=== PATIENT | female | born 1965 | race Caucasian/White ===

== ENCOUNTER 2019-07-20 10:31 | Outpatient (CLI) | payer MEDICARE, SELFPAY ==
--- NOTE | 2019-07-19 | XR_ITS ---
WS: [id number] CERVICAL SPINE TECHNIQUE: 3 views of the cervical spine CLINICAL INFORMATION: CHRONIC NECK PAIN COMPARISON: July 07, 2011 FINDINGS: Sternotomy. Straightening with slight reversal the normal cervical lordosis in the neutral position. Disc space narrowing worse at C5-C6 and C6-C7 with mild spondylitic changes. Normal dens. No signific ant instability on flexion-extension. XR/XR cervical spine 4-5V [id number] IMPRESSION: 1. Straightening with slight reversal the normal cervical lordosis. 2. Mild spondylitic changes with mild disc space narrowing C5-C6 and C6-C7. 3. No significant instability on flexion extension.
--- NOTE | 2019-07-20 | XR_ITS ---
WS: [id number] SHOULDER LEFT TECHNIQUE: 3 views of the left shoulder CLINICAL INFORMATION: LT SHOULDER PAIN COMPARISON: None. FINDINGS: Normal acromioclavicular joint. Normal glenohumeral joint. Acromion is normal in appearance. Normal g lenoid. No evidence of acute fracture dislocation. Calcified granulomas left lung XR/XR shoulder LT min 2V* [id number] IMPRESSION: Normal left shoulder.
== END 2019-07-20 10:32 | disposition home or self-care (01) ==
PROVIDERS: Family Provider Family Medicine; Visit Provider Family Medicine
DX: M25.512 Pain in left shoulder (principal); M54.2 Cervicalgia; G89.29 Other chronic pain; M47.892 Other spondylosis, cervical region

== ENCOUNTER 2020-09-04 22:17 | Inpatient (IN) | payer MEDICARE, MEDICAID, SELFPAY ==
--- NOTE | 2020-09-04 22:19 | ECG_ITS ---
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 Measurements Intervals [place] Rate: 96 P: 0 RI: 195 QRS: -36 QRSD: 145 T: 13 QT: 373 QTc: 473 Interpretive Statements SINUS RHYTHM RIGHT BUNDLE BRANCH BLOCK [120+ ms QRS DURATION, UPRIGHT V1, 40+ ms S IN I/aVL/V4/V5/V6] POSSIBLE ANTERIOR MYOCARDIAL INFARCTION , PROBABLY OLD [30 ms Q WAVE IN V3/V4, OR R < 0.2 mV IN V4] INFERIOR MYOCARDIAL INFARCTION , PROBABLY OLD [40+ ms Q WAVE AND/OR ST/T ABNORMALITY IN II/aVF] Compared to ECG 11/11/2018 17:17:03 Right bundle-branch block now present Myocardial infarct finding still present Electronically Signed On 09-05-2020 22:03:56 MID LEVEL BUSINESS ANALYST by Negar Morales M.D. [id number]
--- NOTE | 2020-09-04 22:19 | XR_ITS ---
WS: [id number] Portable AP upright chest, 09/04/2020 Clinical Data: cp Comparison: Portable chest, 11/11/2018. Findings: No nodules, masses or effusions are seen. . The pulmonary vascularity is not increased. No pneumonia or pneumothorax is seen. The heart is not enlarged. Midline sternotomy sutures are present along with mediastinal clips. The aortic arch is minimally tortuous. XR/XR chest 1V portable [id number] Impression: Atherosclerosis.
[2020-09-04 22:22] VITALS: BP 134/87; PULSE 99; RESP 25; TEMP 36.6; O2SAT 96; BMI 39.1
[2020-09-04 22:28] LABS: Basophils # 0.1 10^3/uL (0.0-0.1); Basophils % 0.5 %; Eosinophils # 0.4 10^3/uL (0.0-0.8); Eosinophils % 3.2 %; Hematocrit 46.2 % (37.0-47.0); Hemoglobin 14.8 g/dL (11.5-15.3); Lymphocytes # 3.9 10^3/uL (0.8-4.8); Lymphocytes % 32.9 %; Mean Corpuscular Hemoglobin 27.3 pg (28.0-34.0); Mean Corpuscular Volume 85.1 fL (81-99); Mean Platelet Volume 10.7 fL (7.4-10.4); Monocytes # 0.7 10^3/uL (0.2-0.9); Monocytes % 5.7 %; Neutrophils # 6.79 10^3/uL (1.8-7.7); Neutrophils % 57.3 %; Nucleated Red Blood Cells % 0 %; Platelet Count 287 10^3/cmm (130-400); Red Blood Count 5.43 10^6/uL (4.1-5.3); Red Cell Distribution Width 14.4 % (12.1-15.1); White Blood Count 11.9 10^3/uL (4.0-10.0)
[2020-09-04 22:29] VITALS: BP 130/78; PULSE 97; RESP 18; O2SAT 97
[2020-09-04 23:13] VITALS: BP 93/78; PULSE 88; RESP 7; O2SAT 95
--- NOTE | 2020-09-04 23:15 | ED_ITS ---
HPI - Chest Pain General: Chief Complaint: Chest Pain Stated Complaint: chest pain Time Seen by Provider: 09/04/20 22:19 Source: patient and EMS Mode of arrival: EMS Limitations: no limitations History of Present Illness: HPI narrative: 54-year-old female who has a history of coronary disease and had a CABG 2 years ago. States 2 days ago she was having some chest pain that resolved started again today. States the pain is been a pressure type pain in the center of her chest and does radiate to her left arm. Said mild dyspnea. She does have history of a pulmonary embolism in the past. Denies any diarrhea. She has had some nausea. Pain is currently 3+ MD complaint: chest pain Associated symptoms: Deny abdominal pain, dyspnea, fever(s), nausea or vomiting Review of Systems Const: Denies: fever(s), chills, body aches or change in appetite Eyes: Denies: blurry vision or eye discomfort ENMT: Denies: throat pain or dental pain Card: Reports: chest pain Resp: Denies: dyspnea GI: Denies: abdominal pain, nausea, vomiting or diarrhea : Denies: dysuria Musc: Denies: neck pain or back pain Skin/Breast: Denies: rash Neuro: Denies: headache(s) Psych: Denies: depression Doc/Lymph: Denies: easy bruising All/Imm: Denies: urticaria Physical Exam Const: COMMON NORMALS: no acute distress, patient oriented x3 and healthy appearing HENMT: COMMON NORMALS: normocephalic and atraumatic HEAD & SCALP: normocephalic and atraumatic Eye: COMMON NORMALS: Equal, round and reactive pupils present and EOMs intact bilaterally PUPIL: Yes Equal, round and reactive pupils present Neck/C-Spine: COMMON NORMALS: full ROM and supple Chest: COMMONS NORMALS: normal inspection of the chest and normal palpation of entire chest wall Resp: COMMON NORMALS: normal respiratory effort, No retractions, No use of accessory muscles and clear to auscultation bilaterally AUSCULTATION: clear to auscultation bilaterally Cardio: COMMON NORMALS: regular rate, regular rhythm and No murmurs present (Cardio) RATE: regular rate RHYTHM: regular rhythm GI: COMMON NORMALS: Normal to inspection, nondistended, normoactive bowel sounds present, Soft to palpation, non-tender and no masses PALPATION: Yes Soft to palpation Extremity: COMMON NORMALS: normal to inspection and full ROM Neuro: COMMON NORMALS: patient oriented x3, moves all extremities and no focal motor deficits Psych: COMMON NORMALS: mental status grossly normal, Normal thought process present and cooperative THOUGHT PROCESS: Normal thought process present Skin: COMMON NORMALS: no rashes or lesions noted and no wounds GENERAL SKIN EXAM: no rashes or lesions noted Course Vital Signs: Vital signs: Vital Signs Temperature 97.8 F 09/04/20 22:22 Pulse Rate 94 09/04/20 23:49 Respiratory Rate 20 H 09/04/20 23:49 Blood Pressure 126/68 09/04/20 23:49 Pulse Oximetry 96 09/04/20 23:42 MDM - Chest Pain MDM Narrative: Medical decision making narrative: Dione presents here with chest pain. Initial troponin or D-dimer here negative. She has been pain-free here. She does have extensive history I spoke to the hospitalist will admit for observation. Lab Data: Labs: Lab Results 09/04/20 09/04/20 09/04/20 Range/Units 22:12 22:58 22:58 WBC 11.9 H (4.0-10.0) 10^3/ uL RBC 5.43 H (4.1-5.3) 10^6/u L Hgb 14.8 (11.5-15.3) g/dL Hct 46.2 (37.0-47.0) % MCV 85.1 (81-99) fL MCH 27.3 L (28.0-34.0) pg MCHC 32.0 (30.0-36.0) g/dL RDW 14.4 (12.1-15.1) % Plt Count 287 (130-400) 10^3/c mm MPV 10.7 H (7.4-10.4) fL Neut % (Auto) 57.3 % Lymph % (Auto) 32.9 % [place] % (Auto) 5.7 % Eos % (Auto) 3.2 % Baso % (Auto) 0.5 % Neut # (Auto) 6.79 (1.8-7.7) 10^3/u L Lymph # (Auto) 3.9 (0.8-4.8) 10^3/u L [place] # (Auto) 0.7 (0.2-0.9) 10^3/u L Eos # (Auto) 0.4 (0.0-0.8) 10^3/u L Baso # (Auto) 0.1 (0.0-0.1) 10^3/u L Nucleated RBC % (a uto) 0 % Nucleated RBCs # 0.0 /100WBC D-Dimer (0-0.59) ug/mIFE U Sodium 134 L (136-145) mmol/L Potassium 4.1 (3.5-5.1) mmol/L Chloride 101 (98-107) mmol/L Carbon Dioxide 21 L (22-29) mmol/L Anion Gap 16.1 (5-19) BUN 9 (6-20) mg/dL Creatinine 0.7 (0.5-0.9) mg/dL GFR Calculation 87.2 L (90-130) mL/min Glucose 285 H (65-115) mg/dL Calculated Osmolal ity 287 (285-295) mOsm/k g Calcium 9.5 (8.5-10.5) mg/dL Total Bilirubin 0.2 (0.15-1.2) mg/dL AST 26 (0-32) U/L ALT 39 H (0-33) U/L Alkaline Phosphata se 113 H (35-105) IU/L Troponin T Baselin e 7 (0-10) ng/L Total Protein 7.5 (6.6-8.7) g/dL Albumin 4.0 (3.5-5.2) g/dL Globulin 3.5 (1.3-4.6) g/dL 09/04/20 Range/Units 22:58 WBC (4.0-10.0) 10^3/ uL RBC (4.1-5.3) 10^6/u L Hgb (11.5-15.3) g/dL Hct (37.0-47.0) % MCV (81-99) fL MCH (28.0-34.0) pg MCHC (30.0-36.0) g/dL RDW (12.1-15.1) % Plt Count (130-400) 10^3/c mm MPV (7.4-10.4) fL Neut % (Auto) % Lymph % (Auto) % [place] % (Auto) % Eos % (Auto) % Baso % (Auto) % Neut # (Auto) (1.8-7.7) 10^3/u L Lymph # (Auto) (0.8-4.8) 10^3/u L [place] # (Auto) (0.2-0.9) 10^3/u L Eos # (Auto) (0.0-0.8) 10^3/u L Baso # (Auto) (0.0-0.1) 10^3/u L Nucleated RBC % (a uto) % Nucleated RBCs # /100WBC D-Dimer 0.35 (0-0.59) ug/mIFE U Sodium (136-145) mmol/L Potassium (3.5-5.1) mmol/L Chloride (98-107) mmol/L Carbon Dioxide (22-29) mmol/L Anion Gap (5-19) BUN (6-20) mg/dL Creatinine (0.5-0.9) mg/dL GFR Calculation (90-130) mL/min Glucose (65-115) mg/dL Calculated Osmolal ity (285-295) mOsm/k g Calcium (8.5-10.5) mg/dL Total Bilirubin (0.15-1.2) mg/dL AST (0-32) U/L ALT (0-33) U/L Alkaline Phosphata se (35-105) IU/L Troponin T Baselin e (0-10) ng/L Total Protein (6.6-8.7) g/dL Albumin (3.5-5.2) g/dL Globulin (1.3-4.6) g/dL Imaging Data^: CXR: Attestation: I personally reviewed and interpreted this imaging study as follows: Radiologist's impression: No acute abnormality EKG Data^: EKG 1: Attestation: I personally reviewed and interpreted this EKG as follows: EKG interpretation date: 09/04/20 EKG interpretation time: 22:22 Interpretation: Normal sinus rhythm heart rate 96 right bundle branch block no ST or T wave abnormalities QRS 145 QTc 427 Discharge Plan Discharge Patient Disposition: Admitted As Inpatient Clinical Impression: Chest pain Qualifiers: Chest pain type: unspecified Qualified Code(s): R07.9 - Chest pain, unspecified Condition: Stable Coding Level of Care Code ED Range Management Specialist for Chg Fwd Exam Comprehensive
[2020-09-04 23:20] LABS: D Dimer 0.35 ug/mIFEU (0-0.59)
[2020-09-04 23:23] LABS: Alanine Aminotransferase 39 U/L (0-33); Alkaline Phosphatase 113 IU/L (35-105); Anion Gap 16.1 (5-19); Aspartate Amino Transferase 26 U/L (0-32); Blood Urea Nitrogen 9 mg/dL (6-20); Calcium 9.5 mg/dL (8.5-10.5); Carbon Dioxide 21 mmol/L (22-29); Chloride 101 mmol/L (98-107); Globulin 3.5 g/dL (1.3-4.6); Glomerular Filtration Rate 87.2 mL/min (90-130); Glucose 285 mg/dL (65-115); Osmolality Calculated 287 mOsm/kg (285-295); Potassium 4.1 mmol/L (3.5-5.1); Sodium 134 mmol/L (136-145); Total Bilirubin 0.2 mg/dL (0.15-1.2); Total Protein 7.5 g/dL (6.6-8.7)
[2020-09-04 23:26] LABS: Troponin(5th) Baseline 7 ng/L (0-10)
[2020-09-04] MEDS: ondansetron 2 mg/ML SDV 2 mL 4 MG IVP (23:39)
[2020-09-04 23:40] VITALS: RESP 26
[2020-09-04] MEDS: morphine 4 mg/mL SDV 1 mL IVP (23:40)
[2020-09-04 23:42] VITALS: BP 130/101; PULSE 89; RESP 13; O2SAT 96
--- NOTE | 2020-09-04 23:43 | PC.NURSE ---
Chest Pain 8/ - Medial radiating to left anterior shoulder, pt reports pain stops at her left elbow Pt states chronic back pain is 8 - pt states she had been suffering from back pain for several years and takes chronic pain medications for it
[2020-09-04 23:49] VITALS: BP 126/68; PULSE 94; RESP 20
[2020-09-05] VITALS (44 sets, daily range): BP systolic 80–127; BP diastolic 50–92; PULSE 63–101; RESP 11–26; TEMP 36.4–36.9; O2SAT 93–98
--- NOTE | 2020-09-05 | USCV_ITS ---
Dione Lazcano Age: 54 Gender: F : 1965 Exam Date: 09/05/2020 14:01 Ordering Phys: Sam Burton MD Technologist: Nito Hale Exam Location: [facility] [place] Indication: Chest pain, h/o CABG BP: 99 / 68 HR: 71 Rhythm: Sinus Technical Quality: Fair MEASUREMENTS (Male / Female) Normal Values 2D ECHO LV Diastolic Diameter PLAX 3.0 cm 4.2 - 5.9 / 3.9 - 5.3 cm LV Systolic Diameter PLAX 2.0 cm IVS Diastolic Thickness 0.8 cm 0.6 - 1.0 / 0.6 - 0.9 cm IVS Systolic Thickness 1.2 cm LVPW Diastolic Thickness 1.1 cm 0.6 - 1.0 / 0.6 - 0.9 cm LVPW Systolic Thickness 1.3 cm LVOT Diameter 2.1 cm LV Ejection Fraction 2D Teich 66.3 % LV Ejection Fraction MOD 2C 59.3 % LV Ejection Fraction 2C AL 59.1 % LA Diameter 3.6 cm LA Width 3.5 cm LA Height 5.1 cm RA Width 3.1 cm RA Height 4.3 cm Aorta at Sinotubular Diameter 2.2 cm M-MODE LV Diastolic Diameter MM 4.7 cm 4.2 - 5.9 / 3.9 - 5.3 cm LV Systolic Diameter MM 3.1 cm LV Ejection Fraction MM Teich 63.9 % IVS Diastolic Thickness MM 1.1 cm 0.6 - 1.0 / 0.6 - 0.9 cm IVS Systolic Thickness MM 1.5 cm LVPW Diastolic Thickness MM 1.2 cm 0.6 - 1.0 / 0.6 - 0.9 cm LVPW Systolic Thickness MM 1.6 cm Aortic Annulus Diameter 3.6 cm LA Ao Ratio MM 1.1 MV E Point Septal Separation 0.9 cm DOPPLER AV Peak Velocity 135.0 cm/s LVOT Peak Velocity 105.0 cm/s AV Area Cont Eq vti 2.2 cm squared AV Area Cont Eq pk 2.6 cm squared MV Area PHT 5.0 cm squared Mitral E to A Ratio 1.0 MV E' Velocity 40.0 cm/s Mitral E to MV E' Ratio 9.0 Mitral E to LV E' Lateral Ratio 8.8 Mitral E to LV E' Septal Ratio 9.3 TR Peak Velocity 153.3 cm/s TR Peak Gradient 9.4 mmHg TV Peak E Velocity 90.0 cm/s Right Atrial Pressure 3.0 mmHg Pulmonary Artery Systolic Pressu 12.4 mmHg PV Peak Velocity 98.0 cm/s FINDINGS Left Ventricle Normal left ventricular cavity size. Normal left ventricular systolic function. Left ventricular ejection fraction is estimated at 70 %. No regional wall motion abnormalities. Normal diastolic function. Right Ventricle Normal right ventricular size and systolic function. Right ventricular systolic pressure 12.4 mmHg. Right Atrium Normal right atrial size. Left Atrium Normal left atrial size. Mitral Valve Structurally normal mitral valve. No mitral valve stenosis. Trace mitral valve regurgitation. Aortic Valve Structurally normal trileaflet aortic valve. No aortic valve stenosis. No aortic valve regurgitation. Tricuspid Valve Structurally normal tricuspid valve. Trace tricuspid valve regurgitation. Pulmonic Valve Pulmonic valve not well visualized. No pulmonary valve stenosis. No pulmonary valve regurgitation. Pericardium No pericardial effusion. Aorta Normal sized aortic root. CONCLUSIONS 1. This is a technically difficult study. Ultrasound enhancing agent (Optison) was used. 2. Normal left ventricular cavity size. Normal left ventricular systolic function. Left ventricular ejection fraction is estimated at 70 %. No regional wall motion abnormalities. Normal diastolic function. 3. No significant valvular abnormality. 4. Normal pulmonary artery pressure. 5. No significant change when compared to previous study dated 09/01/2018. Negar Morales MD Edited by: CV Retinal Angiographer (Electronically Signed) Final Date: 06 September 2020 19:17 Amended: 09 September 2020 10:51 C
--- NOTE | 2020-09-05 00:19 | ECG_ITS ---
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 Measurements Intervals [place] Rate: 98 P: 20 NH: 172 QRS: -19 QRSD: 147 T: 3 QT: 362 QTc: 463 Interpretive Statements SINUS RHYTHM INDETERMINATE AXIS RIGHT BUNDLE BRANCH BLOCK [120+ ms QRS DURATION, UPRIGHT V1, 40+ ms S IN I/aVL/V4/V5/V6] ANTERIOR MYOCARDIAL INFARCTION , OF INDETERMINATE AGE [40+ ms Q WAVE AND/OR ST/T ABNORMALITY IN V3/V4] Compared to ECG 09/04/2020 22:22:17 Indeterminate axis now present Myocardial infarct finding still present Electronically Signed On 09-05-2020 22:27:49 TOOL AND DIE REPAIR by Negar Morales M.D. [id number]
[2020-09-05 00:53] LABS: Troponin 5 2HR 6.51 ng/L (0-10)
[2020-09-05 00:54] LABS: Troponin 5 2HR Delta -0.49 ABS# (0-10)
--- NOTE | 2020-09-05 01:08 | P.HP_ITS ---
Providers/Chief Complaint Admitting Physician: Eliseo Pham Primary Care Provider: Ramiro Camacho MD Chief Complaint: chest pain History of Present Illness Dione Lazcano is a 54 year old female with a history of quadruple bypass surgery presented to the emergency department with a complaint of chest pain onset a couple of days ago, intermittent in nature, maximum severity 9/10, partially relieved with nitroglycerin, no known aggravating factors, no associated diaphoresis or palpitation or lightheadedness. Patient states that the chest pain radiated to involve her left shoulder and arm. Her initial troponin in the ED is negative. EKG showed right bundle branch block and nondiagnostic for ischemia. Chest x-ray is unremarkable. Patient is placed in observation for ACS rule out Review of Systems Narrative: Except as documented, all other systems reviewed and negative. Medications/Allergies Home Medications Medication Instructions Recorded Confirmed Last Taken Type metoprolol tartrate 25 mg tablet 12.5 mg PO BID #90 tab 10/13/19 Unknown Rx furosemide 20 mg tablet 20 mg PO DAILY #30 tab 04/22/20 Unknown Rx aspirin 81 mg 09/05/20 Unknown History duloxetine 60 mg PO DAILY 09/05/20 09/05/20 Unknown History escitalopram oxalate 20 mg 09/05/20 Unknown History liraglutide [Victoza 2-Diomedes] 1.8 mg SUBCUT DAILY 09/05/20 09/05/20 Unknown History loratadine mg 09/05/20 Unknown History metformin 1,000 mg PO BID 09/05/20 09/05/20 Unknown History omeprazole 40 mg PO BID 09/05/20 09/05/20 Unknown History pregabalin [Lyrica] 150 mg PO BID 09/05/20 09/05/20 Unknown History rosuvastatin [Crestor] 20 mg PO DAILY 09/05/20 09/05/20 Unknown History topiramate 100 mg PO BID 09/05/20 09/05/20 Unknown History tramadol 100 mg PO BID PRN 09/05/20 09/05/20 Unknown History Allergies Allergy/AdvReac Type Severity Reaction Status Date / Time prochlorperazine Allergy Mild Unknown Unverified 09/05/20 00:45 [From Compazine] amoxicillin [From Augmentin] Allergy ALGY-Difficulty Verified 09/04/20 22:29 Swallowing clavulanic acid Allergy ALGY-Difficulty Verified 09/04/20 22:29 [From Augmentin] Swallowing codeine Allergy ADR-Hyperte Verified 09/04/20 22:29 nsion eucalyptus Allergy ALGY-Anaphy Verified 09/05/20 00:46 laxis metoclopramide [From Reglan] Allergy ADR-Anxiety Verified 09/04/20 22:29 naproxen Allergy ADR-Vomitin Verified 09/04/20 22:29 g Sulfa (Sulfonamide Allergy ALGY-Rash Verified 09/04/20 22:29 Antibiotics) PFSH Acute PFSH: Medical History (Updated 09/05/20 @ 01:47 by Eliseo Pham MD) Coronary artery disease Diabetes mellitus type 2 in obese History of pulmonary embolism Hyperlipidemia Hypertension Surgical History (Updated 09/05/20 @ 01:48 by Eliseo Pham MD) Hx of CABG Family History (Updated 09/05/20 @ 01:49 by Eliseo Pham MD) Other CAD (coronary artery disease) Social History (Updated 09/05/20 @ 01:49 by Eliseo Pham MD) Smoking and tobacco status: never smoked Alcohol intake: never Substance/Drug Use: never Vitals/I&O/Wt Last Vital Signs Temp 97.5 F L 09/05/20 00:59 Pulse 100 09/05/20 01:05 Resp 15 09/05/20 01:05 BP 124/80 09/05/20 01:05 Pulse Ox 97 09/05/20 01:05 Weight last 48 hrs Weight 103.419 kg Physical Exam Const: COMMON NORMALS: no acute distress, patient oriented x3 and alert NUTRITIONAL APPEARANCE: obese HENMT: COMMON NORMALS: moist oral mucous membranes Eye: COMMON NORMALS: Equal, round and reactive pupils present, EOMs intact bilaterally, conjunctivae normal and no scleral icterus Neck/C-Spine: COMMON NORMALS: supple and no JVD Lymph: LYMPHATIC: no lymphadenopathy noted Chest: COMMONS NORMALS: normal palpation of entire chest wall CHEST: Yes Symmetrical chest wall rise Resp: COMMON NORMALS: normal respiratory effort, No use of accessory muscles and clear to auscultation bilaterally Cardio: COMMON NORMALS: regular rate, regular rhythm, S1 normal heart sound present, S2 normal heart sound present and No murmurs present (Cardio) GI: COMMON NORMALS: Normal to inspection, nondistended, normoactive bowel sounds present, Soft to palpation, non-tender and no bruits : COMMON NORMALS: Yes no CVA tenderness Back/Pelvis: COMMON NORMALS: thoraco-lumbar ROM normal Extremity: COMMON NORMALS: no clubbing, cyanosis or edema and no pedal edema Neuro: COMMON NORMALS: patient oriented x3, CN's II-XII intact bilaterally and no focal motor deficits Psych: COMMON NORMALS: mental status grossly normal and Normal thought process present Skin: COMMON NORMALS: no rashes or lesions noted and no jaundice Data : 09/04/20 22:12 09/04/20 22:58 A&P Assessment and plan (1) Chest pain: Status: Acute Qualifiers: Chest pain type: unspecified Qualified Code(s): R07.9 - Chest pain, unspecified (2) Hx of CABG: Status: Acute (3) Diabetes mellitus type 2 in obese: Status: Acute (4) Hypertension: Status: Acute (5) History of pulmonary embolism: Status: Acute Additional A&P Information Place patient on observation. Continue to trend troponin. Start aspirin, metoprolol, statin. Check lipid profile Cardiology consult. Hold Metformin Insulin sliding scale for glucose management. Patient states that she completed anticoagulation for pulmonary embolism and she is no longer on any anticoagulation. Attestations Medical Necessity Statement*: Patient with significant cardiac history presented with chest pain. She need to be hospitalized for ACS rule out. She is expected to spend less than two midnights. Coding Level of Care Code Acute Crossword Puzzle Maker for [facility] Fwd Exam Comprehensive Diagnoses Chest pain R07.9 Chest pain type: unspecified Hx of CABG Z95.1 Diabetes mellitus type 2 in obese E11.69; E66.9 Hypertension I10 History of pulmonary embolism Z86.711
[2020-09-05] MEDS: morphine 4 mg/mL SDV 1 mL 2 MG IVP ×3 (01:43→19:51)
[2020-09-05] MEDS: famotidine 20 mg/2 mL INJ IVP (01:43)
[2020-09-05] MEDS: enoxaparin 40 mg/0.4 mL Syringe SUBCUT (02:44)
[2020-09-05 05:32] LABS: Troponin 5 6HR 6.73 ng/L (0-10)
[2020-09-05 05:37] LABS: Troponin 5 6HR Delta -0.27 ng/L (0-12)
[2020-09-05 06:51] LABS: Glucose Point of Care 254 mg/dL (70-110)
--- NOTE | 2020-09-05 07:30 | PC.NURSE ---
Upon intial assessment, patient reports that she had intermittent chest pain overnight while resting, nurse was not notified. Patient was educated on the importance of informing nurse when chest pain occurs. Patient verbalized understanding of teaching and compliance. Dr. Burton updated. Patient denies chest pain at this time.
[2020-09-05] MEDS: TRAMadol 50 mg Tablet 100 MG PO ×2 (08:38→19:51)
[2020-09-05] MEDS: duloxetine 60 mg Capsule PO (08:38)
[2020-09-05] MEDS: metoprolol tartrate 25 mg Tablet 12.5 MG PO ×2 (08:39→17:26)
[2020-09-05] MEDS: pantoprazole DR 40 mg Tablet PO ×2 (08:39→17:26)
[2020-09-05] MEDS: topiramate 100 mg Tablet PO ×2 (08:39→17:26)
[2020-09-05] MEDS: pregabalin 150 mg Capsule PO ×2 (08:39→17:27)
--- NOTE | 2020-09-05 09:04 | PC.CHAP ---
Pastoral Care Encounter/Spiritual Assessment Type of Contact [] Declined basting cleaner visit [] Patient/Family/Request visit [] Outpatient visit [] Follow-up visit [] Physician referral [] Code/Alert [x] Routine visit [] Staff referral [] Actively dying [x] Patient sleeping [] Family support [] [] Out of room [] Palliative care [] [] Receiving care in room [] Pre-surgical visit [] Trauma [] Long length of stay [] ICU visit [] Other: Relational/Emotional Strength [] Patient feels connected with others/family/visitors/staff [] Distress [] Loneliness/isolation [] Abandonment Spirituality of Patient [] Person of Beckie [] Attends Church of their Beckie [] Believes in Prayer [] Reads Bible or Baptist materials [] There are Spiritual issues to be addressed Sewer Repairer Interventions [x] Prayer [] Active listening [] Non-anxious presence [] Spiritual/emotional support [] Crisis/trauma care [] Spiritual counseling [] Bereavement support [] Provided bereavement packet [] Provided Bible/devotional materials [] Provided toy/stuffed animal, coloring book to patient or family member [] Provided Communion [] Anointing/[place]mo [] Salvation [x] Completed spiritual assessment [] Other: Impact on Illness or Injury [] Angry [] Fearful [] Anxious [] Often cries [] Exhaustion [] Unable to work [] Unable to attend cheondoism [] Unable to walk/stand [] Unable to read [] Unable to drive [] Unable to eat/drink [] Unable to sleep [] Unable to be with family [] Patient intubated [] Other: Summary Time spent with patient
--- NOTE | 2020-09-05 09:16 | USCV_ITS ---
Dione Lazcano Age: 54 Gender: F : 1965 Exam Date: 09/05/2020 14:01 Ordering Phys: Sam Burton MD Technologist: Nito Hale Exam Location: [facility] [place] Indication: Chest pain, h/o CABG BP: 99 / 68 HR: 71 Rhythm: Sinus Technical Quality: Fair MEASUREMENTS (Male / Female) Normal Values 2D ECHO LV Diastolic Diameter PLAX 3.0 cm 4.2 - 5.9 / 3.9 - 5.3 cm LV Systolic Diameter PLAX 2.0 cm IVS Diastolic Thickness 0.8 cm 0.6 - 1.0 / 0.6 - 0.9 cm IVS Systolic Thickness 1.2 cm LVPW Diastolic Thickness 1.1 cm 0.6 - 1.0 / 0.6 - 0.9 cm LVPW Systolic Thickness 1.3 cm LVOT Diameter 2.1 cm LV Ejection Fraction 2D Teich 66.3 % LV Ejection Fraction MOD 2C 59.3 % LV Ejection Fraction 2C AL 59.1 % LA Diameter 3.6 cm LA Width 3.5 cm LA Height 5.1 cm RA Width 3.1 cm RA Height 4.3 cm Aorta at Sinotubular Diameter 2.2 cm M-MODE LV Diastolic Diameter MM 4.7 cm 4.2 - 5.9 / 3.9 - 5.3 cm LV Systolic Diameter MM 3.1 cm LV Ejection Fraction MM Teich 63.9 % IVS Diastolic Thickness MM 1.1 cm 0.6 - 1.0 / 0.6 - 0.9 cm IVS Systolic Thickness MM 1.5 cm LVPW Diastolic Thickness MM 1.2 cm 0.6 - 1.0 / 0.6 - 0.9 cm LVPW Systolic Thickness MM 1.6 cm Aortic Annulus Diameter 3.6 cm LA Ao Ratio MM 1.1 MV E Point Septal Separation 0.9 cm DOPPLER AV Peak Velocity 135.0 cm/s LVOT Peak Velocity 105.0 cm/s AV Area Cont Eq vti 2.2 cm squared AV Area Cont Eq pk 2.6 cm squared MV Area PHT 5.0 cm squared Mitral E to A Ratio 1.0 MV E' Velocity 40.0 cm/s Mitral E to MV E' Ratio 9.0 Mitral E to LV E' Lateral Ratio 8.8 Mitral E to LV E' Septal Ratio 9.3 TR Peak Velocity 153.3 cm/s TR Peak Gradient 9.4 mmHg TV Peak E Velocity 90.0 cm/s Right Atrial Pressure 3.0 mmHg Pulmonary Artery Systolic Pressu 12.4 mmHg PV Peak Velocity 98.0 cm/s FINDINGS Left Ventricle Normal left ventricular cavity size. Normal left ventricular systolic function. Left ventricular ejection fraction is estimated at 70 %. No regional wall motion abnormalities. Normal diastolic function. Right Ventricle Normal right ventricular size and systolic function. Right ventricular systolic pressure 12.4 mmHg. Right Atrium Normal right atrial size. Left Atrium Normal left atrial size. Mitral Valve Structurally normal mitral valve. No mitral valve stenosis. Trace mitral valve regurgitation. Aortic Valve Structurally normal trileaflet aortic valve. No aortic valve stenosis. No aortic valve regurgitation. Tricuspid Valve Structurally normal tricuspid valve. Trace tricuspid valve regurgitation. Pulmonic Valve Pulmonic valve not well visualized. No pulmonary valve stenosis. No pulmonary valve regurgitation. Pericardium No pericardial effusion. Aorta Normal sized aortic root. CONCLUSIONS 1. This is a technically difficult study. Ultrasound enhancing agent (Optison) was used. 2. Normal left ventricular cavity size. Normal left ventricular systolic function. Left ventricular ejection fraction is estimated at 70 %. No regional wall motion abnormalities. Normal diastolic function. 3. No significant valvular abnormality. 4. Normal pulmonary artery pressure. 5. No significant change when compared to previous study dated 09/01/2018. Negar Morales MD (Electronically Signed) Final Date: 06 September 2020 19:17 S
[2020-09-05] MEDS: nicotine 14 mg Patch 1 PATCH TRANSDERMA (09:40)
--- NOTE | 2020-09-05 11:03 | ECG_ITS ---
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 Measurements Intervals [place] Rate: 63 P: 180 IL: 207 QRS: 180 QRSD: 158 T: 184 QT: 428 QTc: 440 Interpretive Statements ECTOPIC ATRIAL RHYTHM MARKED RIGHT AXIS DEVIATION [QRS AXIS > 100] POSSIBLE LIMB LEAD REVERSAL RIGHT BUNDLE BRANCH BLOCK POSSIBLE ANTERIOR MYOCARDIAL INFARCTION, OF INDETERMINATE AGE MODERATE T-WAVE ABNORMALITY, CONSIDER INFERIOR ISCHEMIA Compared to ECG 09/05/2020 00:12:30 Ectopic atrial rhythm now present Right-axis deviation now present T-wave abnormality now present Possible ischemia now present Myocardial infarct finding still present Electronically Signed On 09-05-2020 21:56:11 AGILE BUSINESS ANALYST by Negar Morales M.D. [id number]
[2020-09-05] MEDS: nitroglycerin 0.4 mg sublingual Tablet SUBLINGUAL (11:14)
[2020-09-05 11:28] LABS: Glucose Point of Care 217 mg/dL (70-110)
--- NOTE | 2020-09-05 11:30 | PC.NURSE ---
Chest Pain Patient reports chest pain to left medial chest that radiates up neck and to left shoulder, 8/10. Describes as tight, pressure that makes it hard to breathe. VSS. Dr. Colbert notified at 1104. Telephone order received to obtain stat 12 lead, administer SL nitro per protocol, remove nitro patch that is in place, stat trop gen 5 one time. RBTO. Nitro patch removed. 1 SL nitro administered, see MAR. After 5 minutes patient reports chest pain is now 2/10. VSS. Nurse to continue to monitor.
--- NOTE | 2020-09-05 11:45 | PC.NURSE ---
AMA Patient tearful stating, I don't feel like you all give a shit about me. Nothing is being done. If I'm just going to sit here and feel like shit, I'd rather feel like shit at home. Nurse educated patient on plan of care. Patient stated understanding, but continued to state she wanted to leave. Nurse educated patient of risks of leaving AMA. Patient verbalized understanding and wanted to talk to her fiance before making a final decision. Dr. Burton notified. No new orders at this time. Nurse to continue to monitor.
[2020-09-05 12:04] LABS: Troponin T (5th) Once 7 ng/L (0-10)
[2020-09-05] MEDS: enoxaparin 100 mg/mL Syringe SUBCUT (12:11)
--- NOTE | 2020-09-05 12:56 | P.CONIM_ITS ---
Providers/Reason For Consult Consulting Physican/Specialty*: Dr. Morales, cardiology Reason for Consult*: Recurrent episodes of chest pain Attending Physician: Sam Burton Primary Care Provider: Ramiro Camacho MD History of Present Illness History of Present Illness Dione Lazcano is a 54 year old female with history of diabetes mellitus type II, dyslipidemia, obesity, chronic back pain and smoking abuse. She also has history of CAD s/p CABG x4 for unstable angina and anxiety/depression. She had an abnormal myocardial perfusion imaging in July 2018. She underwent left heart catheterization with Dr. Cruz and was found to have a high-grade lesions in the proximal and mid LAD. The first diagonal had high-grade lesion proximally. Circumflex artery revealed a high-grade lesions in the terminal bifurcation. The right coronary artery was found to have moderate disease in the mid segment. The PDA branch of the right coronary artery was found to have multiple high-grade lesions. She underwent CABG x4 and her postop course was complicated by prolonged intubation, ICU stay and small subsegmental PE. She returned back for sternal wound dehiscence and underwent wound exploration debridement and wound VAC placement in September 2018. She is known to me from her previous hospitalization and was last seen in office in October 2018. This time she was admitted last night with complaints of chest pain that started on Wednesday. Pain described as retrosternal in location 9/10 in intensity sharp, burning and pressure-like with diaphoresis and some nausea. She got her B19 vaccine on Wednesday. On Wednesday she did not have any symptoms but yesterday her symptoms started again and she presented to ER for further evaluation. She did not take any nitroglycerin as she has no way of checking her blood pressure at home as per patient. EKG showed sinus rhythm right bundle branch block, old inferior myocardial infarction. Probably old anterior myocardial infarction. Previous EKG in November 2018 showed sinus rhythm with low QRS voltage in precordial leads and probably old anterior myocardial infarction. Baseline troponin T of 7 at 1 5:40 0.5 and at 6 hours 6.7. At the time of evaluation, patient complains that she has not received pain medications and nothing is staying being done for her and is threatening to leave AMA. From my previous experience with her, this is her baseline behavior. Review of Systems General: Reports: 10 or more systems reviewed and unremarkable except in HPI and below Const: Denies: fever(s), chills, body aches or change in appetite Eyes: Denies: blurry vision or eye discomfort ENMT: Denies: throat pain or dental pain Card: Reports: chest pain Resp: Denies: dyspnea GI: Denies: abdominal pain, nausea, vomiting or diarrhea : Denies: dysuria Musc: Reports: neck pain and back pain; Denies: extremity swelling or joint swelling Skin/Breast: Denies: rash Neuro: Denies: headache(s) Psych: Denies: depression Doc/Lymph: Denies: easy bruising, petechiae or purpura All/Imm: Denies: urticaria Meds/Allergies Home Medications and Allergies Home Medications Medication Instructions Recorded Confirmed Last Taken Type metoprolol tartrate 25 mg tablet 12.5 mg PO BID #90 tab 10/13/19 09/05/20 Unknown Rx furosemide 20 mg tablet 20 mg PO DAILY #30 tab 04/22/20 09/05/20 Unknown Rx aspirin 81 mg PO DAILY@09/05/20 09/05/20 Unknown History duloxetine 60 mg PO DAILY@09/05/20 09/05/20 Unknown History escitalopram oxalate 20 mg PO DAILY@09/05/20 09/05/20 Unknown History liraglutide [Victoza 2-Diomedes] 1.8 mg SUBCUT DAILY@09/05/20 09/05/20 Unknown History loratadine 10 mg PO DAILY PRN 09/05/20 09/05/20 Unknown History metformin 1,000 mg PO BID@09/05/20 09/05/20 Unknown History nitroglycerin [Nitrostat] 0.4 mg SUBLINGUAL Q5M PRN 09/05/20 09/05/20 Unknown History omeprazole 40 mg PO BID@09/05/20 09/05/20 Unknown History pregabalin [Lyrica] 150 mg PO BID@09/05/20 09/05/20 Unknown History rosuvastatin [Crestor] 20 mg PO DAILY@09/05/20 09/05/20 Unknown History topiramate 100 mg PO BID@09/05/20 09/05/20 Unknown History tramadol 100 mg PO BID 09/05/20 09/05/20 Unknown History Allergies Allergy/AdvReac Type Severity Reaction Status Date / Time prochlorperazine Allergy Mild Unknown Unverified 09/05/20 00:45 [From Compazine] amoxicillin [From Augmentin] Allergy ALGY-Difficulty Verified 09/04/20 22:29 Swallowing clavulanic acid Allergy ALGY-Difficulty Verified 09/04/20 22:29 [From Augmentin] Swallowing codeine Allergy ADR-Hyperte Verified 09/04/20 22:29 nsion eucalyptus Allergy ALGY-Anaphy Verified 09/05/20 00:46 laxis metoclopramide [From Reglan] Allergy ADR-Anxiety Verified 09/04/20 22:29 naproxen Allergy ADR-Vomitin Verified 09/04/20 22:29 g Sulfa (Sulfonamide Allergy ALGY-Rash Verified 09/04/20 22:29 Antibiotics) Current Medications Current Medications Generic Name Dose Route Start Last Admin Trade Name Freq PRN Reason Stop Dose Admin Duloxetine HCl 60 mg 09/05/20 09:00 09/05/20 08:38 Duloxetine 60 Mg Capsule PO 60 mg DAILY HIRO Administration Enoxaparin Sodium 100 mg 09/05/20 12:00 09/05/20 12:11 Enoxaparin 100 Mg/Ml Syringe SUBCUT 100 mg Q12H HIRO Administration Insulin Aspart 0 unit 09/05/20 08:00 09/05/20 12:12 Insulin Aspart 100 Unit/1 Ml SUBCUT 6 unit WM&BEDTIME HIRO Administration Protocol Metoprolol Tartrate 12.5 mg 09/05/20 09:00 09/05/20 08:39 Metoprolol Tartrate 25 Mg Tablet PO 12.5 mg BID HIRO Administration Morphine Sulfate 2 mg 09/05/20 01:33 09/05/20 01:43 Morphine 4 Mg/Ml Sdv 1 Ml IVP 2 mg Q4H PRN Administration SEVERE PAIN Nicotine 1 patch 09/05/20 09:09 09/05/20 09:40 Nicotine 14 Mg Patch TRANSDERMA 1 patch DAILY HIRO Administration Nitroglycerin 1 patch 09/05/20 01:45 09/05/20 01:44 Nitroglycerin 0.1 Mg Patch TRANSDERMA 1 patch Q24H HIRO Administration Nitroglycerin 0.4 mg 09/05/20 11:04 09/05/20 11:14 Nitroglycerin 0.4 Mg Sublingual Tablet SUBLINGUAL 1 tab Q5M PRN Administration CHEST PAIN Pantoprazole Sodium 40 mg 09/05/20 09:00 09/05/20 08:[address] 40 Mg Tablet PO 40 mg BID HIRO Administration Pregabalin 150 mg 09/05/20 09:00 09/05/20 08:39 Pregabalin 150 Mg Capsule PO 150 mg BID HIRO Administration Topiramate 100 mg 09/05/20 09:00 09/05/20 08:39 Topiramate 100 Mg Tablet PO 100 mg BID HIRO Administration Tramadol HCl 100 mg 09/05/20 02:01 09/05/20 08:38 Tramadol 50 Mg Tablet PO 100 mg BID PRN Administration pain PFSH Acute PFSH: Medical History (Updated 09/05/20 @ 19:27 by Negar Morales MD) Coronary artery disease Diabetes mellitus type 2 in obese History of pulmonary embolism Hyperlipidemia Hypertension Surgical History Hx of CABG Family History Other CAD (coronary artery disease) Social History (Updated 09/05/20 @ 19:21 by Negar Morales MD) Smoking and tobacco status: current every day smoker Alcohol intake: never Substance/Drug Use: never Vitals/I&O/Wt Last Vital Signs Temp 98.0 F 09/05/20 07:47 Pulse 82 09/05/20 12:00 Resp 16 09/05/20 12:00 BP 107/75 09/05/20 12:00 Pulse Ox 94 09/05/20 07:47 09/04/20 09/05/20 09/05/20 22:59 06:59 14:59 Intake Total 1000 / 1000 Balance 1000 / 1000 Weight last 48 hrs Weight 228 lb Physical Exam 2 Narrative: EXAM NARRATIVE: GENERAL: Obese woman sitting in bed in no acute distress HEENT: Extraocular movement intact. Pupils equal round reactive to light. No pallor or icterus. NECK: central trachea, no JVD, no abdominojugular reflex. No carotid bruit. CARDIOVASCULAR SYSTEM: S1-S2 regular. No S3 or S4 present. No murmur rubs or gallops. RESPIRATORY SYSTEM: Chest clear to auscultation. No wheezes rhonchi or rubs heard. No use of accessory muscles. ABDOMEN: Soft, nontender and nondistended. Normal bowel sounds present. EXTREMITIES: No cyanosis or clubbing. No edema. No signs of chronic venous insufficiency. ANALYSIS CONSULTANT: Patient is alert oriented ?3. No focal neurological deficits. Cranial nerves intact. SKIN: Normal turgor and temperature. No breakdown, rash or nail changes noted. PSYCH: Normal insight and judgment. Data Other Data: Other data: Coronary angiogram 19 August 2018 Diagnostic Cath Status: Elective Diagnostic Findings LM-is a medium caliber elongated vessel with no significant stenotic lesions. The left anterior descending artery is a medium caliber vessel which appears to wrap around the LV apex minimally. The proximal LAD was a high-grade lesion of around 90%. The first to diagonal branch was found to have 80% tubular lesion. The mid LAD has a 75% lesion, right after the first diagonal branch. The distal LAD was found to have diffuse disease around the LV apex ranging anywhere from 40-50%. The circumflex artery is a small to medium caliber vessel. The proximal and the mid segments artery was found to have mild diffuse disease. The intermedius artery appears to be high obtuse marginal branch. The distal circumflex artery appears to bifurcate. The proximal segment of each of these branches were found to have high-grade stenosis, involving the ostium-around 90% in one of the branches and 75% in the other branch. The right coronary artery is a medium to large caliber dominant vessel which was found to have around 60% in the midsegment. The PDA branch was found to have severe diffuse disease. The proximal segment of the artery was found to have around 80% lesion and the mid segment, around 70% lesion. The intermedius artery was found to be a high obtuse marginal branch. Minimal intimal irregularities were noted in this vessel. Coronary angiography shows right dominance. Recommendations Patient is transferred to medical for stable condition. She'll be evaluated by the cardiothoracic surgeon and the time of the surgical procedure will be decided afterwards. Ejection Fraction: 60.0 % Left Ventriculography Findings: The LVEDP was 30 mmHg. Echocardiogram revealed no evidence of any significant mitral valve prolapse or mitral regurgitation. No significant wall motion abnormalities. Myocardial perfusion imaging July 2018 revealed a moderate area of ischemia in the distribution of the left anterior descending artery. A&P Assessment and plan (1) Chest pain: Chest pain atypical in that it is nonexertional in nature. -Patient's CABG x4 was on August 20 2017. -Echocardiogram was reviewed and even though technically difficult no regional wall motion abnormality was appreciated. I will plan for repeat echo with echo contrast before finalizing the report. -Plan for Lexiscan myocardial perfusion imaging tomorrow and further management based on that. -Continue aspirin, statin, metoprolol, nitroglycerin sublingual. May continue Lovenox for now. -Because of soft blood pressure unable to start on Imdur, amlodipine. -I will add Ranexa to the regimen. Status: Acute Qualifiers: Chest pain type: unspecified Qualified Code(s): R07.9 - Chest pain, unspecified (2) Coronary artery disease: status post CABG x4 Status: Inactive Qualifiers: Coronary Disease-Associated Artery/Lesion type: [place] artery [place] vs. transplanted heart: [place] heart Associated angina: with unspecified angina Qualified Code(s): I25.119 - Atherosclerotic heart disease of [place] coronary artery with unspecified angina pectoris (3) Hypertension: Blood pressure is low normal. On Lasix 20 and metoprolol tartrate 12.5 twice daily at home Status: Acute Qualifiers: Hypertension type: essential hypertension Qualified Code(s): I10 - Essential (primary) hypertension (4) Diabetes mellitus type 2 in obese: On Metformin at home Status: Acute Additional A&P Information Hyperlipidemia Obesity Smoking Anxiety/depression Thank you for allowing me to participate in patient's care. Please feel free to call with questions or concerns Consult Attestations Medical Necessity Statement: Needs hospital stay for management of chest pain Time Spent in Patient Care: Greater than 35 minutes (>than 50% of time spent in counselling and/or direct pt care on unit) . 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 transplanted heart: [place] heart Associated angina: with unspecified angina Hypertension I10 Hypertension type: essential hypertension Diabetes mellitus type 2 in obese E11.69; E66.9
[2020-09-05] MEDS: ranolazine (12HR) 500 mg Tablet PO ×2 (14:20→20:24)
[2020-09-05] MEDS: acetaminophen 325 mg Tablet 650 MG PO ×2 (14:27→19:51)
[2020-09-05 17:07] LABS: Glucose Point of Care 251 mg/dL (70-110)
[2020-09-05] MEDS: famotidine 20 mg Tablet PO (17:26)
[2020-09-05 20:10] LABS: Glucose Point of Care 209 mg/dL (70-110)
[2020-09-05] MEDS: atorvastatin 40 mg Tablet 80 MG PO (20:24)
--- NOTE | 2020-09-05 22:15 | P.PN_ITS ---
Subjective Subjective: Interval history: During my visit having no chest pain. Does report having on and off episodes overnight. Subsequently in the afternoon again having episodes of chest pain. Partially resolved by nitroglycerin. Triggered by showering, activity. Doubts it is as she takes large dose of omeprazole twice daily. Asks about going home. Discussed with her concern about returning home given recurrent episodes of chest pain, possibility of advancement of coronary artery disease, risk of myocardial infarction, arrhythmia, congestive heart failure, other disability and if leaving prematurely before additional assessment and optimization of treatment can be performed. Vitals/I&O/Wt Last Vital Signs Temp 98.0 F 09/05/20 15:23 Pulse 95 09/05/20 20:43 Resp 15 09/05/20 19:52 BP 101/56 09/05/20 19:52 Pulse Ox 95 09/05/20 20:43 09/05/20 09/05/20 09/05/20 06:59 14:59 22:59 Intake Total 1000 / 1000 120 / 120 240 / 360 Balance 1000 / 1000 120 / 120 240 / 360 Weight last 48 hrs Weight 103.419 kg Physical Exam Const: COMMON NORMALS: no acute distress, patient oriented x3 and alert NUTRITIONAL APPEARANCE: obese ORIENTATION/CONSCIOUSNESS: Yes awake HENMT: COMMON NORMALS: oropharynx normal Neck/C-Spine: COMMON NORMALS: no JVD Resp: COMMON NORMALS: normal respiratory effort and clear to auscultation bilaterally AUSCULTATION: clear to auscultation bilaterally Cardio: COMMON NORMALS: no JVD, regular rhythm, S1 normal heart sound present, S2 normal heart sound present and No murmurs present (Cardio) RHYTHM: regular rhythm HEART SOUNDS: S1 normal heart sound present and S2 normal heart sound present GI: COMMON NORMALS: Normal to inspection, nondistended, normoactive bowel sounds present, Soft to palpation and non-tender PALPATION: Yes Soft to palpation Extremity: COMMON NORMALS: no joint enlargement and no pedal edema Neuro: COMMON NORMALS: patient oriented x3 and moves all extremities SENSORIUM/ORIENTATION: Yes alert Skin: COMMON NORMALS: no rashes or lesions noted GENERAL SKIN EXAM: no rashes or lesions noted Data : 09/04/20 22:12 09/04/20 22:58 A&P Assessment and plan (1) Chest pain: Lovenox initiated with concern for possible unstable angina. Alternatively discussed with her other possible causes. She thinks this is less likely heartburn, and is continued on PPI. She does have quite a bit of chronic pain following sternotomy with CABG. Appreciate cardiology assessment. Planned for stress testing for tomorrow for additional risk stratification. Continue aspirin, statin, metoprolol. Ranexa added. Status: Acute Qualifiers: Chest pain type: unspecified Qualified Code(s): R07.9 - Chest pain, unspecified (2) Hx of CABG: Status: Acute (3) Diabetes mellitus type 2 in obese: SSI Status: Acute (4) Hypertension: Monitor. Cardiac diet. Metoprolol. Status: Acute Qualifiers: Hypertension type: essential hypertension Qualified Code(s): I10 - Essential (primary) hypertension (5) History of pulmonary embolism: Status: Acute Attestations Medical Necessity Statement*: Requiring admission of over 2 midnights for assessment of management of recurrent chest pain, with known coronary disease, status post CABG, multiple CAD risk factors. 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
[2020-09-06] VITALS (12 sets, daily range): BP systolic 94–134; BP diastolic 54–76; PULSE 62–94; RESP 15–26; TEMP 36.8–37.3; O2SAT 94–96
--- NOTE | 2020-09-06 01:30 | PC.NURSE ---
Unable to do rounding on patient due to being in room 103.
[2020-09-06] MEDS: enoxaparin 100 mg/mL Syringe SUBCUT ×2 (01:33→12:10)
[2020-09-06] MEDS: aspirin 325 mg Tablet PO ×2 (01:33→10:28)
[2020-09-06] MEDS: morphine 4 mg/mL SDV 1 mL 2 MG IVP ×3 (01:49→14:34)
[2020-09-06 04:56] LABS: Basophils # 0.1 10^3/uL (0.0-0.1); Basophils % 0.7 %; Eosinophils # 0.4 10^3/uL (0.0-0.8); Eosinophils % 4.6 %; Hematocrit 43.3 % (37.0-47.0); Hemoglobin 13.4 g/dL (11.5-15.3); Lymphocytes # 3.7 10^3/uL (0.8-4.8); Lymphocytes % 43.4 %; Mean Corpuscular HGB Conc 30.9 g/dL (30.0-36.0); Mean Corpuscular Hemoglobin 27.1 pg (28.0-34.0); Mean Corpuscular Volume 87.7 fL (81-99); Mean Platelet Volume 10.7 fL (7.4-10.4); Monocytes # 0.6 10^3/uL (0.2-0.9); Monocytes % 6.5 %; Neutrophils % 44.6 %; Nucleated Red Blood Cells % 0 %; Platelet Count 235 10^3/cmm (130-400); Red Blood Count 4.94 10^6/uL (4.1-5.3); Red Cell Distribution Width 14.5 % (12.1-15.1); White Blood Count 8.5 10^3/uL (4.0-10.0)
[2020-09-06 05:25] LABS: Anion Gap 12.1 (5-19); Blood Urea Nitrogen 11 mg/dL (6-20); Calcium 9.1 mg/dL (8.5-10.5); Carbon Dioxide 27 mmol/L (22-29); Chloride 104 mmol/L (98-107); Glomerular Filtration Rate 74.7 mL/min (90-130); Glucose 212 mg/dL (65-115); Magnesium 2.1 mg/dL (1.7-2.3); Osmolality Calculated 294 mOsm/kg (285-295); Potassium 4.1 mmol/L (3.5-5.1); Sodium 139 mmol/L (136-145); Thyroid Stimulating Hormone 0.53 uIU/mL (0.27-4.20)
[2020-09-06 05:42] LABS: Chol HDL Ratio 3.89 mg/dL (0.0-4.40); Cholesterol 136 mg/dL (0-200); HDL Cholesterol 35 mg/dL (60-100); LDL Cholesterol Calculated 34 mg/dL (50-129); LDL HDL Ratio 0.97 RATIO (0.00-3.22); Triglycerides 336 mg/dL (0-150)
--- NOTE | 2020-09-06 06:09 | ECG_ITS ---
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 Interpretive Statements NAME OF STUDY: LEXISCAN SESTAMIBI STRESS TEST INDICATION: Chest pain, history of CABG PROCEDURE: At the baseline, the blood pressure was 119/68 mmHg, oxygen saturation 95% with a heart rate of 75 beats per minute. The electrocardiogram showed normal sinus rhythm, indeterminate axis. Right bundle branch block. Possible anterior myocardial infarction of indeterminate age. The Lexiscan was infused over a period of 20 seconds. A total of 0.4 milligrams of Lexiscan was infused. The stress phase was continued for a total of 5 minutes. Heart rate at the end of the stress phase was 103 bpm, oxygen saturation 98% with a blood pressure of 126/69 mmHg. The EKG at the peak infusion revealed sinus tachycardia with no significant ST-T wave changes. Sestamibi was injected 20 seconds after the Lexiscan infusion. Blood pressure at the end of the recovery phase was 134/76 mmHg, oxygen saturation 96% with a heart rate of 93 beats per minute. CONCLUSION: 1. No significant EKG changes with the LexiScan infusion. 2. No LexiScan induced chest pain or cardiac arrhythmia. 3. Normal blood pressure and heart rate response. 4. Sestamibi/sestamibi perfusion scan pending; see separate report. Electronically Signed On 09-06-2020 17:28:09 VAULT CLERK by Negar Morales M.D. [id number]
[2020-09-06 06:49] LABS: Glucose Point of Care 189 mg/dL (70-110)
[2020-09-06] MEDS: regadenoson 0.4 Mg/5 ml Syringe IVP (08:55)
[2020-09-06] MEDS: ondansetron 2 mg/ML SDV 2 mL 4 MG IVP (08:59)
[2020-09-06] MEDS: pregabalin 150 mg Capsule PO ×2 (10:28→17:23)
[2020-09-06] MEDS: topiramate 100 mg Tablet PO ×2 (10:28→17:23)
[2020-09-06] MEDS: pantoprazole DR 40 mg Tablet PO ×2 (10:29→17:23)
[2020-09-06] MEDS: nicotine 14 mg Patch 1 PATCH TRANSDERMA (10:29)
[2020-09-06] MEDS: famotidine 20 mg Tablet PO ×2 (10:29→17:23)
[2020-09-06] MEDS: duloxetine 60 mg Capsule PO (10:29)
[2020-09-06] MEDS: ranolazine (12HR) 500 mg Tablet PO (10:34)
--- NOTE | 2020-09-06 10:34 | PC.NURSE ---
Dr. Morales notified of patient's VS. Telephone order to hold metoprolol and nitro patch for 1-2 hours and reassess BP. Give Ranexa now. RBTO. Nurse to continue to monitor.
[2020-09-06] MEDS: perflutren protein-a microsphr 0.22 mg/mL SDV 3 mL IV (10:50)
[2020-09-06 11:27] LABS: Glucose Point of Care 253 mg/dL (70-110)
[2020-09-06] MEDS: TRAMadol 50 mg Tablet 100 MG PO (12:11)
--- NOTE | 2020-09-06 12:15 | PC.NURSE ---
Dr. Morales updated on patient's VS. Telephone message left. Nurse waiting further orders.
--- NOTE | 2020-09-06 13:00 | PC.NURSE ---
Telephone order received from Dr. Morales to administer metoprolol now, hold nitro patch. RBTO. Nurse to continue to monitor.
[2020-09-06] MEDS: metoprolol tartrate 25 mg Tablet 12.5 MG PO ×2 (13:02→17:23)
[2020-09-06] MEDS: acetaminophen 325 mg Tablet 650 MG PO (13:03)
--- NOTE | 2020-09-06 13:28 | PC.CHAP ---
Pastoral Care Encounter/Spiritual Assessment Type of Contact [] Declined layout man visit [] Patient/Family/Request visit [] Outpatient visit [] Follow-up visit [] Physician referral [] Code/Alert [xx] Routine visit [] Staff referral [] Actively dying [] Patient sleeping [] Family support [] [] Out of room [] Palliative care [] [] Receiving care in room [] Pre-surgical visit [] Trauma [] Long length of stay [] ICU visit [] Other: Relational/Emotional Strength [xx] Patient feels connected with others/family/visitors/staff [] Distress [] Loneliness/isolation [] Abandonment Spirituality of Patient [xx] Person of Beckie [xx] Attends Zoroastrian of their Beckie [xx] Believes in Prayer [xx] Reads Bible or Scientologist materials [] There are Spiritual issues to be addressed Podiatrist Assistant Interventions [xx] Prayer [xx Active listening [xx] Non-anxious presence [] Spiritual/emotional support [] Crisis/trauma care [] Spiritual counseling [] Bereavement support [] Provided bereavement packet [] Provided Bible/devotional materials [] Provided toy/stuffed animal, coloring book to patient or family member [] Provided Communion [] Anointing/[place] [] Salvation [xx] Completed spiritual assessment [] Other: Impact on Illness or Injury [] Angry [] Fearful [] Anxious [] Often cries [] Exhaustion [] Unable to work [] Unable to attend yarsani [] Unable to walk/stand [] Unable to read [] Unable to drive [] Unable to eat/drink [] Unable to sleep [] Unable to be with family [] Patient intubated [] Other: Summary Patient in good spirits with good sense of humor. She hopes to be discharged today. Time spent with patient 4 minutes
--- NOTE | 2020-09-06 14:34 | PC.NURSE ---
patient requesting pain medication for back and neck pain 9/ morphine given
--- NOTE | 2020-09-06 16:42 | P.DS_ITS ---
Discharge Providers Date of Admission: 09/05/20 19:45 Date of Discharge: September 06, 2020 Attending Provider at Admission: Eliseo Pham Attending Provider at Discharge: Sam Burton Primary Care Provider: Ramiro Camacho MD Diagnoses at Discharge Discharge Diagnosis (1) Chest pain: Status: Acute Qualifiers: Chest pain type: unspecified Qualified Code(s): R07.9 - Chest pain, unspecified (2) Hx of CABG: Status: Acute (3) Diabetes mellitus type 2 in obese: Status: Acute (4) Hypertension: Status: Acute Qualifiers: Hypertension type: essential hypertension Qualified Code(s): I10 - Essential (primary) hypertension (5) History of pulmonary embolism: Status: Acute Reason for Visit Reason for Visit: chest pain Hospital Course Hospital Course Pleasant 54-year-old lady with history of CAD, CABG 2yrs ago, DM2, HTN, HLD, was admitted for assessment management due to episodes of chest pain. She was monitored on telemetry. Treated with nitroglycerin as needed. Pain was partially responsive to nitroglycerin. She also indicated she has had quite a bit of postnasal discharge recently which has been making her cough. Chest x- ray showed atherosclerosis, no pneumonia. She remained afebrile, without leukocytosis. She was assessed by cardiology, started on Ranexa. Was assessed by a stress test which was found unremarkable. Her chest pain improved. She was doing well on reassessment by cardiology and was deemed safe for discharge with request for outpatient follow-up. Her chest pain may in part also be related to recently increasing frequency and cough related to postnasal drip with seasonal allergies. She takes Claritin at home. Discussed with her risks and benefits of [id number] intranasal steroid as well. Please follow-up with her to ensure improvement. Physical Exam Const: COMMON NORMALS: no acute distress, patient oriented x3 and alert NUTRITIONAL APPEARANCE: obese ORIENTATION/CONSCIOUSNESS: Yes awake HENMT: COMMON NORMALS: oropharynx normal Neck/C-Spine: COMMON NORMALS: no JVD Chest: OTHER: Midline healed sternotomy with tenderness to touch around the sternotomy. No erythema, ulceration or drainage. Resp: COMMON NORMALS: normal respiratory effort and clear to auscultation bilaterally AUSCULTATION: clear to auscultation bilaterally Cardio: COMMON NORMALS: no JVD, regular rhythm, S1 normal heart sound present, S2 normal heart sound present and No murmurs present (Cardio) RHYTHM: regular rhythm HEART SOUNDS: S1 normal heart sound present and S2 normal heart sound present GI: COMMON NORMALS: Normal to inspection, nondistended, normoactive bowel sounds present, Soft to palpation and non-tender PALPATION: Yes Soft to palpation Extremity: COMMON NORMALS: no joint enlargement and no pedal edema Neuro: COMMON NORMALS: patient oriented x3 and moves all extremities SENSORIUM/ORIENTATION: Yes alert Skin: COMMON NORMALS: no rashes or lesions noted GENERAL SKIN EXAM: no rashes or lesions noted Discharge Data Data Completed and Pending: Completed Studies During Hospitalization Category Date Time Status Sestamibi Stress Test Request Routi ne Exams 09/06/20 06:09 Draft XR chest 1V michael ble [id number] Stat Exams 09/04/20 22:19 Completed NM raheem perf SPECT r/s* [id number] Routin e Nuc Med 09/06/20 19:10 Completed Pending at discharge Category Date Time Status CV echo complete* [id number] Routine Ultrasound 09/05/20 09:16 Taken US/CV paperwork R outine Ultrasound 09/06/20 Taken Labs from last 24 hours 09/06/20 09/06/20 09/06/20 11:19 06:44 04:35 WBC RBC Hgb Hct MCV MCH MCHC RDW Plt Count MPV Neut % (Auto) Lymph % (Auto) Morgan % (Auto) Eos % (Auto) Baso % (Auto) Neut # (Auto) Lymph # (Auto) Morgan # (Auto) Eos # (Auto) Baso # (Auto) Nucleated RBC % (a uto) Nucleated RBCs # Sodium Potassium Chloride Carbon Dioxide Anion Gap BUN Creatinine GFR Calculation Glucose POC Glucose 253 H 189 H Calculated Osmolal ity Calcium Magnesium Triglycerides 336 H Cholesterol 136 LDL Cholesterol, C alc 34 L HDL Cholesterol 35 L LDL/HDL Ratio 0.97 Cholesterol/HDL Ra galen 3.89 TSH 09/06/20 09/06/20 09/05/20 04:35 04:35 20:07 WBC 8.5 RBC 4.94 Hgb 13.4 Hct 43.3 MCV 87.7 MCH 27.1 L MCHC 30.9 RDW 14.5 Plt Count 235 MPV 10.7 H Neut % (Auto) 44.6 Lymph % (Auto) 43.4 Morgan % (Auto) 6.5 Eos % (Auto) 4.6 Baso % (Auto) 0.7 Neut # (Auto) 3.80 Lymph # (Auto) 3.7 Morgan # (Auto) 0.6 Eos # (Auto) 0.4 Baso # (Auto) 0.1 Nucleated RBC % (a uto) 0 Nucleated RBCs # 0.0 Sodium 139 Potassium 4.1 Chloride 104 Carbon Dioxide 27 Anion Gap 12.1 BUN 11 Creatinine 0.8 GFR Calculation 74.7 L Glucose 212 H POC Glucose 209 H Calculated Osmolal ity 294 Calcium 9.1 Magnesium 2.1 Triglycerides Cholesterol LDL Cholesterol, C alc HDL Cholesterol LDL/HDL Ratio Cholesterol/HDL Ra galen TSH 0.53 09/05/20 16:27 WBC RBC Hgb Hct MCV MCH MCHC RDW Plt Count MPV Neut % (Auto) Lymph % (Auto) Morgan % (Auto) Eos % (Auto) Baso % (Auto) Neut # (Auto) Lymph # (Auto) Morgan # (Auto) Eos # (Auto) Baso # (Auto) Nucleated RBC % (a uto) Nucleated RBCs # Sodium Potassium Chloride Carbon Dioxide Anion Gap BUN Creatinine GFR Calculation Glucose POC Glucose 251 H Calculated Osmolal ity Calcium Magnesium Triglycerides Cholesterol LDL Cholesterol, C alc HDL Cholesterol LDL/HDL Ratio Cholesterol/HDL Ra galen TSH Vitals: Last Vital Signs Temp 98.3 F 09/06/20 15:05 Pulse 73 09/06/20 15:05 Resp 20 H 09/06/20 15:05 BP 107/66 09/06/20 15:05 Pulse Ox 94 09/06/20 15:05 Discharge Plan Discharge Patient Disposition: Home Condition: Stable Prescriptions: New ranolazine 500 mg Tablet Extended Release 12 Hr 500 mg PO 0900,2100 Qty: 60 RF: 0 Continued metoprolol tartrate 25 mg tablet 12.5 mg PO BID Qty: 90 RF: 3 furosemide 20 mg tablet 20 mg PO DAILY Qty: 30 RF: 0 rosuvastatin [Crestor] 20 mg Tablet 20 mg PO DAILY@ RF: 0 aspirin 81 mg Tablet,Chewable 81 mg PO DAILY@ RF: 0 metformin 1,000 mg Tablet 1,000 mg PO BID@ RF: 0 escitalopram oxalate 20 mg Tablet 20 mg PO DAILY@ RF: 0 Victoza 2-Diomedes 0.6 mg/0.1 mL (18 mg/3 mL) Pen Injector 1.8 mg SUBCUT DAILY@ RF: 0 duloxetine 60 mg Capsule, Delayed Rel Sprinkle 60 mg PO DAILY@ RF: 0 omeprazole 40 mg Capsule,Delayed Release(Dr/Ec) 40 mg PO BID@ RF: 0 topiramate 100 mg Tablet 100 mg PO BID@ RF: 0 pregabalin [Lyrica] 150 mg Capsule 150 mg PO BID@ RF: 0 tramadol 100 mg Tablet 100 mg PO BID RF: 0 loratadine 10 mg Tablet 10 mg PO DAILY PRN (Reason: Allergic Reaction) RF: 0 Nitrostat 0.4 mg Tablet, Sublingual 0.4 mg SUBLINGUAL Q5M PRN (Reason: Chest Pain) RF: 0 Discharge Orders: Discharge Order (Routine); Ordered 09/06/20 Ordered By: Sam Burton Referrals: Yina Guillermo FNP [Nurse Practitioner] - 1 week ([facility] will be calling to schedule a followup with YAZAN Goncalves to be seen in approx. 1 week. If you don't hear from them by Wednesday, please give them a call. Thank you) Ramiro Camacho MD [Primary Care Provider] - 09/10/20 9:15 am (You have a hospital followup with Dr. Camacho at [facility] on September 10 at 9:15am) Negar Morales MD [Physician] - 1 month ([facility] will be calling to schedule a cardiology followup with Dr. Morales to be seen in approx. 1 month. If you don't hear from them by Wednesday afternoon, please give them a call. Thank you) Discharge Diet: Cardiac and Diabetic Discharge Activity: Increase activity as tolerated and Limit activity as instructed Patient Instructions: Ranolazine (By mouth), Cardiac Stress Test (DC), Chest Pain (DC), Chest Pain Stoplight Activity Restrictions/Additional Instructions: If you experience any persistent chest pain, or frequent recurrences, please return to ER to seek medical attention for additional evaluation. Please continue medications as instructed by cardiology. Follow-up with cardiology in clinic. Continue to follow-up as cultures for coronary disease including diabetes, hypertension with your primary care provider. Discharge Attestations Time Spent in Discharge Care*: greater than 30 min Quality Metrics Clinical Quality Measures During this hospital stay, did patient experience: None Coding Level of Care Code Acute Senior Brand Manager for Santo Fwdhaval Diagnoses Chest pain R07.9 Chest pain type: unspecified Hx of CABG Z95.1 Diabetes mellitus type 2 in obese E11.69; E66.9 Hypertension I10 Hypertension type: essential hypertension History of pulmonary embolism Z86.711
[2020-09-06 16:46] LABS: Glucose Point of Care 238 mg/dL (70-110)
--- NOTE | 2020-09-06 16:50 | PC.NURSE ---
Discharge instructions given per the physician's orders. Patient verbalized understanding of discharge teaching and medication changes and did not have any further questions. IV has been removed. Patient dressed self. No further needs identified at this time. Patient to be drove home by juana in private vehicle.
--- NOTE | 2020-09-06 17:23 | P.PN_ITS ---
Subjective Subjective: Interval history: She underwent stress test this morning. No significant chest pains Medications: Reviewed: Yes Vitals/I&O/Wt Last Vital Signs Temp 98.3 F 09/06/20 15:05 Pulse 73 09/06/20 15:05 Resp 20 H 09/06/20 15:05 BP 107/66 09/06/20 15:05 Pulse Ox 94 09/06/20 15:05 09/06/20 09/06/20 09/06/20 06:59 14:59 22:59 Intake Total 300 / 660 360 / 360 Balance 300 / 660 360 / 360 Weight last 48 hrs Weight 228 lb Physical Exam Narrative: EXAM NARRATIVE: GENERAL: Obese woman sitting in bed in no acute distress HEENT: Extraocular movement intact. Pupils equal round reactive to light. No pallor or icterus. NECK: central trachea, no JVD, no abdominojugular reflex. No carotid bruit. CARDIOVASCULAR SYSTEM: S1-S2 regular. No S3 or S4 present. No murmur rubs or gallops. RESPIRATORY SYSTEM: Chest clear to auscultation. No wheezes rhonchi or rubs heard. No use of accessory muscles. ABDOMEN: Soft, nontender and nondistended. Normal bowel sounds present. EXTREMITIES: No cyanosis or clubbing. No edema. No signs of chronic venous insufficiency. 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 No focal neurological deficits. Cranial nerves intact. SKIN: Normal turgor and temperature. No breakdown, rash or nail changes noted. PSYCH: Normal insight and judgment. Data : 09/06/20 04:35 09/06/20 04:35 A&P Assessment and plan (1) Chest pain: Chest pain atypical in that it is nonexertional in nature. -Patient's CABG x4 was on August 20 2017. -Echocardiogram with normal LV function and no RWMA. -No ischemia on Lexiscan myocardial perfusion imaging. -Continue aspirin, statin, metoprolol, nitroglycerin sublingual. -Because of soft blood pressure unable to start on Imdur, amlodipine. -I will add Ranexa 500 mg BID to the regimen. -f/u in H[facility] with me in 3-4 weeks Status: Acute Qualifiers: Chest pain type: unspecified Qualified Code(s): R07.9 - Chest pain, unspecified (2) Coronary artery disease: status post CABG x4 Status: Inactive Qualifiers: Associated angina: with unspecified angina Coronary Disease-Associated Artery/Lesion type: [place] artery [place] vs. transplanted heart: [place] heart Qualified Code(s): I25.119 - Atherosclerotic heart disease of [place] coronary artery with unspecified angina pectoris (3) Hypertension: Blood pressure is low normal. On Lasix 20 and metoprolol tartrate 12.5 twice daily at home Status: Acute Qualifiers: Hypertension type: essential hypertension Qualified Code(s): I10 - Essential (primary) hypertension (4) Diabetes mellitus type 2 in obese: On Metformin at home Status: Acute Additional A&P Information Hyperlipidemia Obesity Smoking Anxiety/depression Thank you for allowing me to participate in patient's care. Please feel free to call with questions or concerns Attestations Medical Necessity Statement*: stable to be discharged home. Time Spent in Patient Care: 16 - 35 minutes (>than 50% of time spent in counselling and/or direct pt care on unit) . Coding Level of Care Code Acute Sourcing Analyst for Santo Layton Diagnoses Chest pain R07.9 Chest pain type: unspecified Coronary artery disease I25.119 Associated angina: with unspecified angina Coronary Disease-Associated Artery/Lesion type: [place] artery [place] vs. transplanted heart: [place] heart Hypertension I10 Hypertension type: essential hypertension Diabetes mellitus type 2 in obese E11.69; E66.9
--- NOTE | 2020-09-06 19:10 | NMCV_ITS ---
NM raheem perf SPECT r/s* [id number] Dione Lazcano Age: 54 Gender: F : 1965 Exam Date: 09/06/2020 08:09 Ordering Phys: Negar Morales MD ([email or web address]) Technologist: AAKASH Moe Exam Location: [facility] Indications: Chest pain STRESS TEST Please see separate stress test report in [facility] for full findings IMAGE PROTOCOL Rest/Stress 1 Lexiscan Day Radiopharmaceutical Dose (mCi) Administration Site Administered by Rest: Tc-99m 10.8 IV AAKASH Virk Sestamibi Stress:Tc-99m 32.4 IV AAKASH Moe Sestamibi Rest: 06-Sep-2020 60 Discovery 630 Stress: 06-Sep-2020 45 Discovery 630 0.4mg Lexiscan. Images obtained in supine and prone position. SPECT RESULTS Technical Quality: Good Raw Data Analysis: Breast attenuation, Soft tissue attenuation Image Corrections: No attenuation or motion correction applied Summed Stress Score: 6 Summed Rest Score: 0 Summed Difference Score: 6 PERFUSION FINDINGS Small size perfusion abnormality of mild severity of mid inferolateral, apical lateral, apical anterior and apical garcia on supine stress images with improved tracer uptake on prone stress images. This is likely suggestive of attenuation artifact. FUNCTIONAL RESULTS (calculated via Gated SPECT) Stress Image LV EF (%): 72 Stress EDV (mL):69 TID: 0.97 Stress ESV (mL):19 FUNCTIONAL FINDINGS: The left ventricle is normal in size. Transient Ischemia Dilatation of 0.97. There is normal left ventricular systolic function. The left ventricular ejection fraction is normal with a value of 72%. There is normal left ventricular wall thickening and no regional wall motion abnormality. Normal end-diastolic and end-systolic volumes. IMPRESSIONS 1. Myocardial perfusion imaging is normal. 2. Overall left ventricular systolic function is normal without regional wall motion abnormalities. 3. The left ventricular ejection fraction is normal with a value of 72%. 4. No significant coronary ischemia based on the study Negar Morales MD (Electronically Signed) Final Date: 06 September 2020 12:06 S
== END 2020-09-06 17:42 | disposition home or self-care (01) | DRG 303 ==
LOC: ER 09-05 00:01 → CSU 09-05 00:05
PROVIDERS: Admitting Provider Internal Medicine; Emergency Provider Emergency Medicine; PCP Family Medicine; Visit Provider Internal Medicine
DX: I25.119 Atherosclerotic heart disease of native coronary artery with unspecified angina pectoris (principal); E11.9 Type 2 diabetes mellitus without complications; E66.9 Obesity, unspecified; Z68.39 Body mass index [BMI] 39.0-39.9, adult; I10 Essential (primary) hypertension; Z95.1 Presence of aortocoronary bypass graft; Z86.711 Personal history of pulmonary embolism; E78.5 Hyperlipidemia, unspecified; Z79.82 Long term (current) use of aspirin; Z79.84 Long term (current) use of oral hypoglycemic drugs
CPT/HCPCS: 36415; 36416; 71045; 78452; 80048; 80053; 80061; 82962; 83735; 84443; 84484; 85025; 85378; 93005; 93017; 93306; 96372; 96374; 96375; 99285; A9500; C8929; G0378; J1650; J1815; J2270; J2405; J2785; J3490; Q9956

== ENCOUNTER → 2021-03-25 14:19 | Outpatient (BNVA) | payer MEDICARE, SELFPAY | PROVIDERS: Referring Provider Family Medicine; Visit Provider Podiatrist Foot & Ankle Surgery | DX: E11.21 Type 2 diabetes mellitus with diabetic nephropathy (principal); G57.61 Lesion of plantar nerve, right lower limb; Z79.4 Long term (current) use of insulin; M20.41 Other hammer toe(s) (acquired), right foot; M20.42 Other hammer toe(s) (acquired), left foot; M21.41 Flat foot [pes planus] (acquired), right foot; M21.42 Flat foot [pes planus] (acquired), left foot | CPT/HCPCS: 73630 ==

== ENCOUNTER 2021-04-24 13:35 | Outpatient (CLI) | payer MEDICARE, MEDICAID, SELFPAY ==
--- NOTE | 2021-04-24 13:46 | CT_ITS ---
WS: [id number] LDCT LUNG CANCER SCREENING TECHNIQUE: Noncontrast CT of the chest with coronal and sagittal reformatted images. CLINICAL INFORMATION: HX OF TOBACCO USE COMPARISON: CTA chest January 25, [address] chest November 11, 2018 DLP: 56.17 mGy.cm DIvol: 1.[address] scans at [facility] use at least one of these dose optimization techniques: automat ed exposure control; mA and/or kV adjustment per patient size (includes targeted exams where dose is matched to clinical indication); or iterative reconstruction. FINDINGS: Tiny noncalcified 3 mm nodule right lower lobe is stable. No other suspicious pulmonary parenchymal o pacities. No acute pulmonary infiltrates. No focal pneumonia or pleural fluid. No mediastinal or christen r lymphadenopathy. A few calcified granulomas. Sternotomy. CABG. Cholecystectomy clips. Adrenal gland s are normal. CT/CT lung screening [id number] IMPRESSION: LUNG-RADS: 2-Benign Appearance or Behavior FOLLOW UP: 12 Month: Continue annual screening with LDCT
== END 2021-04-24 13:36 | disposition home or self-care (01) ==
LOC: RAD 13:39
PROVIDERS: PCP Family Medicine; Visit Provider Family Medicine
DX: Z12.2 Encounter for screening for malignant neoplasm of respiratory organs (principal); Z87.891 Personal history of nicotine dependence
CPT/HCPCS: 71271

== ENCOUNTER 2021-04-24 13:40 | Outpatient (CLI) | payer MEDICARE, MEDICAID, SELFPAY ==
--- NOTE | 2021-04-24 13:45 | XR_ITS ---
WS: [id number] Chest 2 views, 04/24/2021 Clinical Data: BURSITIS OF LEFT SHOULDER/APPROVAL FOR MRI Comparison: Portable chest, 09/04/2020. Findings: No nodules, masses or effusions are seen. The heart is normal. The pulmonary vascularity is not increased. No pneumonia or pneumothorax is seen. Midline sternotomy sutures and mediastinal clip s are present. The aortic arch and descending thoracic aorta show tortuosity. There are clips in the right upper quadrant from a cholecystectomy. XR/XR chest 2V* [id number] Impression: Atherosclerosis.
== END 2021-04-24 13:41 | disposition home or self-care (01) ==
LOC: RAD 13:41
PROVIDERS: PCP Family Medicine; Visit Provider Specialist
DX: M75.52 Bursitis of left shoulder (principal); I70.90 Unspecified atherosclerosis
CPT/HCPCS: 71046

== ENCOUNTER 2021-05-12 15:39 | Outpatient (CLI) | payer MEDICARE, SELFPAY ==
--- NOTE | 2021-05-12 15:51 | MR_ITS ---
WS: [id number] MRI LEFT SHOULDER NONCONTRAST TECHNIQUE: Sagittal T2, coronal T1, T2 and proton density imaging. Axial gradient PDE imaging. CLINICAL INFORMATION: shoulder pain COMPARISON: None. FINDINGS: Moderate degenerative arthritis AC joint with mild edema and mild downsloping acromion. Mild narrowin g of the subacromial space. Small amount of fluid in the AC joint. Mild chronic thinning of the supra spinatus with tendinopathy. Tiny undersurface surface tear at the supraspinatus insertion. Normal inf raspinatus. Normal teres minor. Normal subscapularis. Normal biceps tendon in the bicipital groove. Normal bone marrow signal in the humerus and glenoid. G lenoid labrum appears grossly normal. Normal biceps labral anchor. Normal intra-articular biceps tend on. MR/MR shoulder LT wo con* [id number] IMPRESSION: 1. Moderate degenerative arthritis AC joint with mild edema and fluid. Mild do wnsloping acromion. 2. Chronic thinning with tendinopathy involving the distal supraspinatus with tendinopathy. Tiny undersurface surface tear at the supraspinatus insertion. 3. Rotator cuff is otherwise normal. 4. Normal biceps tendon in the bicipital groove. Normal biceps labral anchor. 5. No other significant findings.
== END 2021-05-12 15:40 | disposition home or self-care (01) ==
PROVIDERS: PCP Family Medicine; Visit Provider Specialist
DX: M19.012 Primary osteoarthritis, left shoulder (principal)
CPT/HCPCS: 73221

== ENCOUNTER 2021-06-06 11:41 | Outpatient (CLI) | payer MEDICARE, SELFPAY ==
--- NOTE | 2021-06-06 11:45 | US_ITS ---
WS: [id number] INDICATION: Walls's neuroma TECHNIQUE: Ultrasound plantar soft tissues FINDINGS: Ultrasound plantar soft tissues. No evidence of intertarsal lesion. No cystic or solid lesi ons. No evidence of neuroma. US/US soft tissue/extremity [id number] IMPRESSION: No cystic or solid intertarsal lesions.
== END 2021-06-06 11:42 | disposition home or self-care (01) ==
LOC: US 11:42
PROVIDERS: PCP Family Medicine; Visit Provider Podiatrist Foot & Ankle Surgery
DX: G57.61 Lesion of plantar nerve, right lower limb (principal)
CPT/HCPCS: 76882

== ENCOUNTER 2021-06-06 13:26 | Outpatient (CLI) | payer MEDICARE, SELFPAY ==
--- NOTE | 2021-06-06 13:32 | MR_ITS ---
WS: [id number] MRI LUMBAR SPINE NONCONTRAST TECHNIQUE: Sagittal T1, T2 and STIR imaging. Axial T1 and T2 imaging. CLINICAL INFORMATION: VERTEBROGENIC LOW BACK PAIN COMPARISON: None. FINDINGS: Mild lumbar curve. No acute compression. Slight anterolisthesis L4 on L5. L1-L2: Normal. L2-L3: Normal. L3-L4: Mild annular bulging with slight effacement of ventral thecal sac. Left eccentric disc bulging with mild left foraminal narrowing and slight contact of the exiting left L3 nerve root. Right shraddha en is patent. Mild facet arthropathy. L4-L5: Slight anterolisthesis L4 on L5. Shallow central disc protrusion with mild central canal steno sis. Impingement traversing L5 nerve roots bilaterally. Moderate facet arthropathy. Mild right forami nal narrowing. L5-S1: No significant disc bulging. Mild facet arthropathy. Spinal canal and foramen are patent. Visualized pelvic bony structures: Normal. Paravertebral soft tissues: Normal. MR/MR lumbar spine wo con* [id number] IMPRESSION: 1. Mild lumbar curve. No acute compression. Slight anterolisthesis L4 on L5. 2. Small left foraminal protrusion L3-4 with mild left foraminal narrowing and slight contact of the exiting left L3 nerve root. 3. Slight anterolisthesis L4 on L5 with a shallow central protrusion and sligh t impingement traversing L5 nerve roots bilaterally with mild central canal carin nosis. 4. Mild right L4-5 foraminal narrowing. 5. Moderate facet arthropathy more prominent at L4-5.
--- NOTE | 2021-06-06 13:33 | XR_ITS ---
WS: [id number] Lumbar spine with flexion, extension, and neutral lateral, 06/06/2021 Clinical Data: VERTEBROGENIC LOW BACK PAIN Comparison: None. Findings: No compression fractures are seen. There is degenerative disc narrowing at L3-L4 and L4-L5 with a 0.5 cm subluxation at L4-L5. Minimal anterior osteoarthritic spurring is present at all levels. No limitation of motion is seen. The subluxation at L4-L5 increases to 1.0 cm on flexion but does not change on extension. XR/XR lumbar spine f/e only [id number] Impression: 1. Degenerative disc disease at L4-L5 and L3-L4. 2. 0.5 cm subluxation of 0.5 cm at L4-L5 which increases to 1.0 cm on flexion. 3. Minimal osteoarthritis of the lumbar vertebral bodies.
== END 2021-06-06 13:27 | disposition home or self-care (01) ==
PROVIDERS: PCP Family Medicine; Visit Provider Nurse Practitioner
DX: M54.51 Vertebrogenic low back pain (principal); S33.140A Subluxation of L4/L5 lumbar vertebra, initial encounter; X58.XXXA Exposure to other specified factors, initial encounter; M47.816 Spondylosis without myelopathy or radiculopathy, lumbar region
CPT/HCPCS: 72120; 72148

== ENCOUNTER 2022-01-09 12:55 | Outpatient (CLI) | payer MEDICARE, SELFPAY | END 2022-01-09 12:56 | disposition home or self-care (01) | LOC: LAB 12:59 | PROVIDERS: PCP Family Medicine; Visit Provider Family Medicine | DX: A04.72 Enterocolitis due to Clostridium difficile, not specified as recurrent (principal) | CPT/HCPCS: 82274; 83630; 83993; 87177; 87209; 87493; 89125 ==

== ENCOUNTER 2022-02-10 13:09 | Outpatient (CLI) | payer MEDICARE, SELFPAY ==
--- NOTE | 2022-02-10 13:21 | US_ITS ---
WS: [id number] THYROID ULTRASOUND HISTORY: THYROID CYST COMPARISON: 03/29/2017 Right lobe: 1.4 cm x 1.3 cm x 4.3 cm (w x ap x l). Volume: 4.1 cm3. Mild atrophy of the thyroid. Nodule in the mid gland measures 1.3 x 0.7 x 1.0 cm. No increased vascul arity. Hypoechoic nodule is nonspecific and similar to the prior study without significant increase i n size. There is an additional nodule measuring 0.9 x 0.3 x 0.8 cm in the superior pole. Left lobe: 1.4 cm x 1.3 cm x 3.8 cm (w x ap x l). Volume: 3.5 cm3. Small caliber thyroid. No suspicious mass. No echogenic foci. Isthmus: 0.3 cm. US/US thyroid [id number] IMPRESSION: 1. Indeterminate but small RIGHT thyroid nodules. The largest has not changed since 2017. Due to stability no intervention necessary at this time. Consider y early thyroid evaluation. 2. No echogenic foci.
--- NOTE | 2022-02-10 13:21 | XRR_ITS ---
PROCEDURE INFORMATION: Exam: XR Chest Exam date and time: 02/10/2022 1:33 PM Age: 56 years old Clinical indication: Other: Unintentional weight loss/abd pain/htn; Prior surgery; Surgery type: Hystero, heart bypass TECHNIQUE: Imaging protocol: Radiologic exam of the chest. Views: Frontal and lateral upright, 2 views. COMPARISON: CR XR chest 2V* [id number] 04/24/2021 1:50 PM FINDINGS: Tubes, catheters and devices: The patient is status post median sternotomy with intact sternal cerclage wires. Lungs: Left mid lung zone calcified pulmonary parenchymal granuloma. The pulmonary vasculature is normal. The lungs are otherwise peripherally clear bilaterally. Pleural spaces: No pleural effusion. No pneumothorax. Heart/Mediastinum: Left hilar granulomatous harsha calcifications are present. Coronary ostial markers are present. The heart is normal in size and contour. Bones/joints: Degenerative disk disease is present at mid-thoracic spine disk levels. Organs: The gallbladder is likely surgically absent, with metallic clips overlying the gallbladder fossa. XR/XR chest 2V* [id number] IMPRESSION: Prior cholecystectomy.
== END 2022-02-10 13:10 | disposition home or self-care (01) ==
LOC: RAD 13:14
PROVIDERS: PCP Family Medicine; Visit Provider Family Medicine
DX: R63.4 Abnormal weight loss (principal); R10.9 Unspecified abdominal pain; I10 Essential (primary) hypertension; E04.1 Nontoxic single thyroid nodule; Z90.49 Acquired absence of other specified parts of digestive tract
CPT/HCPCS: 71046; 76536

== ENCOUNTER 2023-03-03 08:57 | Outpatient (CLI) | payer MEDICARE, SELFPAY ==
--- NOTE | 2023-03-03 09:22 | US_ITS ---
WS: [id number] THYROID ULTRASOUND HISTORY: THYROID CYST COMPARISON: 02/10/2022 and 03/29/2017 Right lobe: 1.4 cm x 1.4 cm x 4.4 cm (w x ap x l). Volume: 4.5 cm3. Small echogenic thyroid with multiple cysts. Majority of these cystic masses are spongiform nodules w hich are considered benign. The largest in the mid gland measures 8 x 7 x 9 mm. No solid mass or incr easing thyroid nodule. Left lobe: 1.4 cm x 1.4 cm x 4.3 cm (w x ap x l). Volume: 4.3 cm3. Normal size and echotexture. No significant or dominant nodules are present. Isthmus: 0.3 cm. IMPRESSION: 1. TI-RADS 2. Benign stable appearing cystic nodules in the RIGHT thyroid. 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 2. No enlarging or solid thyroid masses.
--- NOTE | 2023-03-03 09:22 | USCV_ITS ---
Dione Lazcano Age: 57 Gender: F : 1965 Exam Date: 03/03/2023 09:46 Ordering Phys: Raymundo Morales MD Technologist: Charlie Lane Exam Location: [facility] – [place]_ Indication: leg pain RIGHT LEFT Brachial 135.00 mmHg Brachial 138.00 mmHg Pressure (mmHg) Waveform Pressure (mmHg) Waveform 155.00 CORK INSULATOR 167.00 143.00 DPA 170.00 1.12 Ankle/Brachial Index 1.20 156.00 Pre-Exercise Toe Pressure 152.00 1.15 Pre-Exercise Toe/Brachial Index 1.10 FINDINGS Resting CHASE 1.12 on the right and 1.2 on the left Resting TBI of 1.15 on the right and 1.1 on the left . CONCLUSIONS Normal resting ABIs and TBIs bilaterally, suggesting no significant arterial obstruction. Dr Becca Cruz MD [facility] (Electronically Signed) Final Date: 03 March 2023 19:22 S
== END 2023-03-03 08:58 | disposition home or self-care (01) ==
PROVIDERS: PCP Family Medicine; Visit Provider Family Medicine
DX: R60.0 Localized edema (principal); M79.605 Pain in left leg; M79.604 Pain in right leg; E04.2 Nontoxic multinodular goiter
CPT/HCPCS: 76536; 93922

== ENCOUNTER → 2024-02-07 10:50 | Outpatient (BNVA) | payer MEDICARE, SELFPAY | PROVIDERS: PCP Family Medicine; Visit Provider Podiatrist Foot & Ankle Surgery | DX: L60.8 Other nail disorders (principal); L60.3 Nail dystrophy; G57.61 Lesion of plantar nerve, right lower limb; E11.69 Type 2 diabetes mellitus with other specified complication; E66.9 Obesity, unspecified; Z79.84 Long term (current) use of oral hypoglycemic drugs | CPT/HCPCS: 99203 ==

== ENCOUNTER → 2024-03-22 11:43 | Outpatient (BNVA) | payer MEDICARE, SELFPAY | PROVIDERS: PCP Family Medicine; Visit Provider Internal Medicine Cardiovascular Disease | DX: I25.118 Atherosclerotic heart disease of native coronary artery with other forms of angina pectoris (principal); R07.9 Chest pain, unspecified; R06.09 Other forms of dyspnea; I10 Essential (primary) hypertension; E78.2 Mixed hyperlipidemia; E11.69 Type 2 diabetes mellitus with other specified complication; F17.200 Nicotine dependence, unspecified, uncomplicated; R94.31 Abnormal electrocardiogram [ECG] [EKG] | CPT/HCPCS: 93005; 99204 ==